=== PATIENT | female | born 2000 | race Caucasian/White ===

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

== ENCOUNTER → 2020-09-15 | Outpatient (CLI) | payer BC ==
--- NOTE | 2020-09-15 11:37 | US ---
EXAMINATION TYPE: US abdomen complete DATE OF EXAM: 09/15/2020 COMPARISON: NONE CLINICAL HISTORY: R10.11 Abd Pain RUQ. EXAM MEASUREMENTS: Liver Length: 15.2 cm Gallbladder Wall: 0.4 cm CBD: 0.4 cm Spleen: 10.3 cm Right Kidney: 11.9 x 3.2 x 4.9 cm Left Kidney: 12.5 x 5.0 x 4.9 cm Pancreas: limited visualization due to midline bowel gas. Liver: wnl Gallbladder: two small gallstones with shadowing, debris floating within, there is echogenic materia l on anterior fundal wall, and possible cholecystic fluid noted, gallbladder wall thickening. Evidence for sonographic Murillo's sign: No CBD: wnl Spleen: wnl Right Kidney: No hydronephrosis or masses seen Left Kidney: No hydronephrosis or masses seen Upper IVC: wnl Abd Aorta: wnl The liver is homogenous. The intrahepatic portion of the IVC and proximal abdominal aorta are within normal limits. There is cholelithiasis. Common bile duct is unremarkable. The visualized portions of the pancreas are homogenous. The spleen is unremarkable. Kidneys are symmetric and free of hydr onephrosis. No renal lesions are seen. IMPRESSION: Cholelithiasis with tumefactive sludge. There are some limitations to the exam. Correlate for possible chronic cholecystitis.
== END | disposition home or self-care (01) ==
LOC: RADUSWWP 07:36
PROVIDERS: ATTEND Internal Medicine
DX: K80.20 Calculus of gallbladder without cholecystitis without obstruction (principal); K82.8 Other specified diseases of gallbladder
CPT/HCPCS: 76700

== ENCOUNTER 2020-09-17 04:03 | Emergency (ER) | payer BC ==
[2020-09-17 04:14] VITALS: BP 111/78; PULSE 74; RESP 18; TEMP 98
[2020-09-17] MEDS ORDERED: MORPHINE SULFATE 4 MG/ML SYRINGE IV STA (04:35)
[2020-09-17] MEDS ORDERED: SODIUM CHLORIDE 0.9% 500 ML 500 ML IV STA (04:35)
[2020-09-17] MEDS ORDERED: KETOROLAC 15 MG/ML 1 ML VIAL IVP STA (04:35)
[2020-09-17] MEDS ORDERED: SODIUM CHLORIDE 0.9% 1,000 ML IV STA (04:35)
--- NOTE | 2020-09-17 04:36 | ED ---
Abdominal Pain HPI - General Chief Complaint: Abdominal Pain Stated Complaint: Abdominal pain Time Seen by Provider: 09/17/20 04:32 Source: patient, RN notes reviewed, old records reviewed, Caregiver Mode of arrival: ambulatory Limitations: no limitations - History of Present Illness Initial Comments: This is a 19-year-old female DF for evaluation of possible gallbladder disease. Patient had outpatient ultrasound as of late in his been having right upper quadrant and epigastric abdominal pain especially after eating. Following with primary care. Patient unsure of exact cause but has been told is likely gallbladder without fever. No surgical history denies chance of MD Complaint: abdominal pain -: days(s) Location: RUQ Radiation: RUQ Migration to: epigastric Severity: moderate Severity scale (1-10): 6 Quality: sharp Consistency: intermittent Improves With: nothing Worsens With: eating Associated Symptoms: nausea Treatments Prior to Arrival: NSAIDs - Related Data Home Medications Medication Instructions Recorded Confirmed Amoxic-Pot Clav 875-125Mg 1 tab PO Q12HR 09/21/20 09/23/20 [Augmentin 875-125] Gianvi- Contol 1 tab PO DAILY 09/21/20 09/23/20 Omeprazole 20 mg PO DAILY 09/21/20 09/23/20 Previous Rx's Medication Instructions Recorded HYDROcodone/APAP 5-325MG [[place] 1 tab PO Q6HR PRN 3 Days #12 tab 09/23/20 5-325] Allergies Allergy/AdvReac Type Severity Reaction Status Date / Time No Known Allergies Allergy Verified 09/21/20 11:32 Review of Systems ROS Statement: Those systems with pertinent positive or pertinent negative responses have been documented in the HPI. ROS Other: All systems not noted in ROS Statement are negative. Past Medical History Past Medical History: No Reported History Additional Past Medical History / Comment(s): Hx Concussion. Enlarged tonsils, adenoids, hx tonsil stones. History of Any Multi-Drug Resistant Organisms: None Reported Past Surgical History: No Surgical Hx Reported Additional Past Surgical History / Comment(s): [place] teeth removed Past Anesthesia/Blood Transfusion Reactions: No Reported Reaction Past Psychological History: No Psychological Hx Reported Smoking Status: Never smoker Past Alcohol Use History: None Reported Past Drug Use History: None Reported - Past Family History Mother Family Medical History: No Reported History General Exam Limitations: no limitations General appearance: alert, in no apparent distress Head exam: Present: atraumatic, normocephalic, normal inspection Eye exam: Present: normal appearance, PERRL, EOMI. Absent: scleral icterus, conjunctival injection, periorbital swelling ENT exam: Present: normal exam, mucous membranes moist Neck exam: Present: normal inspection. Absent: tenderness, meningismus, lymphadenopathy Respiratory exam: Present: normal lung sounds bilaterally. Absent: respiratory distress, wheezes, rales, rhonchi, stridor Cardiovascular Exam: Present: regular rate, normal rhythm, normal heart sounds. Absent: systolic murmur, diastolic murmur, rubs, gallop, clicks GI/Abdominal exam: Present: soft, normal bowel sounds. Absent: distended, tenderness, guarding, rebound, rigid Extremities exam: Present: normal inspection, full ROM, normal capillary refill. Absent: tenderness, pedal edema, joint swelling, calf tenderness Back exam: Present: normal inspection Neurological exam: Present: alert, oriented X3, CN II-XII intact Psychiatric exam: Present: normal affect, normal mood Skin exam: Present: warm, dry, intact, normal color. Absent: rash Course Vital Signs 09/17/20 04:10 Temperature 98 F Pulse Rate 74 Respiratory 18 Rate Blood Pressure 111/78 O2 Sat by Pulse 99 Oximetry - Reevaluation(s) Reevaluation #1: Medical records reviewed Patient has resolution of symptoms here in the ER Patient informed of results results, questions are answered Patient feels good for discharge home Medical Decision Making - Medical Decision Making 19 female to the ER for biliary colic, patient can be discharged home - Lab Data Result diagrams: 09/17/20 04:41 09/17/20 04:41 Lab Results 09/17/20 09/17/20 09/17/20 Range/Units 04:41 04:41 04:41 WBC 8.3 (4.0-11.0) k/uL RBC 4.69 (3.80-5.40) m/uL Hgb 13.2 (11.4-16.0) gm/dL Hct 38.2 (34.0-46.0) % MCV 81.4 (80.0-100.0) fL MCH 28.2 (25.0-35.0) pg MCHC 34.6 (31.0-37.0) g/dL RDW 12.2 (11.5-15.5) % Plt Count 316 (150-450) k/uL MPV 6.5 Neutrophils % 60 % Lymphocytes % 29 % Monocytes % 4 % Eosinophils % 4 % Basophils % 1 % Neutrophils # 5.0 (1.3-7.7) k/uL Lymphocytes # 2.5 (1.0-4.8) k/uL Monocytes # 0.4 (0-1.0) k/uL Eosinophils # 0.3 (0-0.7) k/uL Basophils # 0.1 (0-0.2) k/uL Sodium (137-145) mmol/L Potassium (3.5-5.1) mmol/L Chloride (98-107) mmol/L Carbon Dioxide (22-30) mmol/L Anion Gap mmol/L BUN (7-17) mg/dL Creatinine (0.52-1.04) mg/dL Est GFR (CKD-EPI)AfAm (>60 ml/min/1.73 sqM) Est GFR (CKD-EPI)NonAf (>60 ml/min/1.73 sqM) Glucose (74-99) mg/dL Calcium (8.4-10.2) mg/dL Total Bilirubin (0.2-1.3) mg/dL AST (14-36) U/L ALT (4-34) U/L Alkaline Phosphatase (38-126) U/L Total Protein (6.3-8.2) g/dL Albumin (3.5-5.0) g/dL Amylase (30-110) U/L Lipase (23-300) U/L Urine Color Yellow Urine Appearance Clear (Clear) Urine pH 6.0 (5.0-8.0) Ur Specific [place] 1.030 (1.001-1.035) Urine Protein Trace H (Negative) Urine Glucose (UA) Negative (Negative) Urine Ketones Negative (Negative) Urine Blood Negative (Negative) Urine Nitrite Negative (Negative) Urine Bilirubin Negative (Negative) Urine Urobilinogen <2.0 (<2.0) mg/dL Ur Leukocyte Esterase Negative (Negative) Urine HCG, Qual Not Detected (Not Detectd) 09/17/20 Range/Units 04:41 WBC (4.0-11.0) k/uL RBC (3.80-5.40) m/uL Hgb (11.4-16.0) gm/dL Hct (34.0-46.0) % MCV (80.0-100.0) fL MCH (25.0-35.0) pg MCHC (31.0-37.0) g/dL RDW (11.5-15.5) % Plt Count (150-450) k/uL MPV Neutrophils % % Lymphocytes % % Monocytes % % Eosinophils % % Basophils % % Neutrophils # (1.3-7.7) k/uL Lymphocytes # (1.0-4.8) k/uL Monocytes # (0-1.0) k/uL Eosinophils # (0-0.7) k/uL Basophils # (0-0.2) k/uL Sodium 135 L (137-145) mmol/L Potassium 3.8 (3.5-5.1) mmol/L Chloride 102 (98-107) mmol/L Carbon Dioxide 25 (22-30) mmol/L Anion Gap 8 mmol/L BUN 15 (7-17) mg/dL Creatinine 0.70 (0.52-1.04) mg/dL Est GFR (CKD-EPI)AfAm >90 (>60 ml/min/1.73 sqM) Est GFR (CKD-EPI)NonAf >90 (>60 ml/min/1.73 sqM) Glucose 98 (74-99) mg/dL Calcium 9.4 (8.4-10.2) mg/dL Total Bilirubin 0.5 (0.2-1.3) mg/dL AST 22 (14-36) U/L ALT 18 (4-34) U/L Alkaline Phosphatase 64 (38-126) U/L Total Protein 7.7 (6.3-8.2) g/dL Albumin 4.5 (3.5-5.0) g/dL Amylase 73 (30-110) U/L Lipase 182 (23-300) U/L Urine Color Urine Appearance (Clear) Urine pH (5.0-8.0) Ur Specific [place] (1.001-1.035) Urine Protein (Negative) Urine Glucose (UA) (Negative) Urine Ketones (Negative) Urine Blood (Negative) Urine Nitrite (Negative) Urine Bilirubin (Negative) Urine Urobilinogen (<2.0) mg/dL Ur Leukocyte Esterase (Negative) Urine HCG, Qual (Not Detectd) Disposition Clinical Impression: Abdominal pain, Biliary colic, Biliary sludge Disposition: HOME SELF-CARE Condition: Good Instructions (If sedation given, give patient instructions): Biliary Colic (ED), Low Fat Diet (ED) Is patient prescribed a controlled substance at d/c from ED?: No Referrals: Hermilo Black MD [Medical Doctor] - 1-2 days
[2020-09-17 05:04] LABS: Basophils # (A) 0.1 k/uL (0-0.2); Basophils % (A) 1 %; Eosinophils # (A) 0.3 k/uL (0-0.7); Eosinophils % (A) 4 %; HCT 38.2 % (34.0-46.0); HGB 13.2 gm/dL (11.4-16.0); Lymphocytes # (A) 2.5 k/uL (1.0-4.8); Lymphocytes % (A) 29 %; MCH 28.2 pg (25.0-35.0); MCHC 34.6 g/dL (31.0-37.0); MCV 81.4 fL (80.0-100.0); Mean Platelet Volume 6.5; Monocytes # (A) 0.4 k/uL (0-1.0); Monocytes % (A) 4 %; Neutrophils % (A) 60 %; Platelet Count 316 k/uL (150-450); RBC 4.69 m/uL (3.80-5.40); RDW 12.2 % (11.5-15.5); WBC 8.3 k/uL (4.0-11.0)
[2020-09-17 05:14] LABS: ALT 18 U/L (4-34); AST 22 U/L (14-36); African American GFR (CKD) >90 (>60 ml/min/1.73 sqM); Albumin 4.5 g/dL (3.5-5.0); Alkaline Phosphatase 64 U/L (38-126); Amylase 73 U/L (30-110); Anion Gap 8 mmol/L; Blood Urea Nitrogen 15 mg/dL (7-17); Calcium 9.4 mg/dL (8.4-10.2); Carbon Dioxide 25 mmol/L (22-30); Chloride 102 mmol/L (98-107); Glucose 98 mg/dL (74-99); Lipase 182 U/L (23-300); Non-African American GFR(CKD) >90 (>60 ml/min/1.73 sqM); Potassium 3.8 mmol/L (3.5-5.1); Sodium 135 mmol/L (137-145); Total Bilirubin 0.5 mg/dL (0.2-1.3); Total Protein 7.7 g/dL (6.3-8.2)
[2020-09-17 05:21] LABS: Appearance,Urine Clear (Clear); Bilirubin,Urine Negative (Negative); Blood,Urine Negative (Negative); Color,Urine Yellow; Glucose,Urine (UA) Negative (Negative); Ketones,Urine Negative (Negative); Leukocyte Esterase,Urine Negative (Negative); Nitrite,Urine Negative (Negative); Protein,Urine Trace (Negative); Urobilinogen,Urine <2.0 mg/dL (<2.0)
== END 2020-09-17 06:11 | disposition home or self-care (01) ==
LOC: EC 04:03
DX: K80.50 Calculus of bile duct without cholangitis or cholecystitis without obstruction (principal); K83.8 Other specified diseases of biliary tract; Z79.899 Other long term (current) drug therapy; Z79.3 Long term (current) use of hormonal contraceptives
CPT/HCPCS: 36415; 80053; 82150; 83690; 85025; 81003; 81025; 99284; 96374; 96375; 96361; J2270; J1885

== ENCOUNTER 2020-09-18 22:34 | Emergency (ER) | payer BC ==
[2020-09-18 22:39] VITALS: BP 114/77; PULSE 87; RESP 18; TEMP 97.9
[2020-09-18] MEDS ORDERED: SODIUM CHLORIDE 0.9% 1,000 ML IV STA (22:49)
[2020-09-18] MEDS ORDERED: KETOROLAC 15 MG/ML 1 ML VIAL IVP STA (22:49)
[2020-09-18] MEDS ORDERED: MORPHINE SULFATE 4 MG/ML SYRINGE IV STA (22:49)
[2020-09-18 23:15] LABS: Basophils % (A) 0 %; Eosinophils # (A) 0.4 k/uL (0-0.7); Eosinophils % (A) 3 %; HCT 37.6 % (34.0-46.0); HGB 12.9 gm/dL (11.4-16.0); Lymphocytes # (A) 2.8 k/uL (1.0-4.8); Lymphocytes % (A) 26 %; MCHC 34.2 g/dL (31.0-37.0); MCV 81.7 fL (80.0-100.0); Mean Platelet Volume 6.7; Monocytes # (A) 0.3 k/uL (0-1.0); Monocytes % (A) 3 %; Neutrophils # (A) 6.9 k/uL (1.3-7.7); Neutrophils % (A) 66 %; Platelet Count 303 k/uL (150-450); RDW 12.3 % (11.5-15.5); WBC 10.5 k/uL (4.0-11.0)
[2020-09-18 23:22] LABS: Appearance,Urine Clear (Clear); Bilirubin,Urine Negative (Negative); Blood,Urine Large (Negative); Color,Urine Yellow; Glucose,Urine (UA) Negative (Negative); Ketones,Urine Negative (Negative); Leukocyte Esterase,Urine Small (Negative); Mucus,Urine Many /hpf; Nitrite,Urine Negative (Negative); PH, Urine 5.5 (5.0-8.0); Protein,Urine Trace (Negative); RBC,Urine 71 /hpf (0-5); Specific Gravity,Urine 1.024 (1.001-1.035); Squamous Epithelial Cell,Urine 1 /hpf (0-4); WBC,Urine 5 /hpf (0-5)
[2020-09-18 23:29] LABS: ALT 27 U/L (4-34); AST 52 U/L (14-36); African American GFR (CKD) >90 (>60 ml/min/1.73 sqM); Albumin 4.5 g/dL (3.5-5.0); Alkaline Phosphatase 67 U/L (38-126); Amylase 79 U/L (30-110); Anion Gap 8 mmol/L; Blood Urea Nitrogen 9 mg/dL (7-17); Calcium 9.6 mg/dL (8.4-10.2); Carbon Dioxide 25 mmol/L (22-30); Chloride 106 mmol/L (98-107); Glucose 90 mg/dL (74-99); Lipase 265 U/L (23-300); Non-African American GFR(CKD) >90 (>60 ml/min/1.73 sqM); Potassium 3.7 mmol/L (3.5-5.1); Sodium 139 mmol/L (137-145); Total Bilirubin 0.6 mg/dL (0.2-1.3); Total Protein 7.6 g/dL (6.3-8.2)
--- NOTE | 2020-09-18 23:43 | ED ---
Recheck HPI - General Chief Complaint: Abdominal Pain Stated Complaint: gallbladder flareup Time Seen by Provider: 09/18/20 22:40 Source: patient, RN notes reviewed, old records reviewed Mode of arrival: ambulatory Limitations: no limitations - History of Present Illness Initial Comments: This is a 19-year-old female presenting with her mother. She presents for mother for right upper quadrant and epigastric abdominal pain sudden onset for eating tonight. Patient has had some gallbladder attacks as of late female primary care both here in the ER. Patient with no new symptoms no change in symptoms, occasionally gets pain after eating. No fevers mild nausea she does have vomiting and no diarrhea MD Complaint: other (Patient's recheck for gallbladder pain) -: days(s) Returns Today for: persistent/worsening pain related to initial visit Symptoms Since Prior Visit: worsening pain Associated Symptoms: none Treatments Prior to Arrival: Given Pain Meds on - Related Data Home Medications Medication Instructions Recorded Confirmed Acetaminophen [Tylenol Extra 500 - 1,000 mg PO Q6H PRN 04/25/19 04/30/19 Strength] Ibuprofen [Motrin Ib] 400 mg PO Q6H PRN 04/25/19 04/25/19 Multivitamin [Multivitamins Adult 1 each PO DAILY 04/25/19 04/25/19 Gummies] Allergies Allergy/AdvReac Type Severity Reaction Status Date / Time No Known Allergies Allergy Verified 09/18/20 22:39 Review of Systems ROS Statement: Those systems with pertinent positive or pertinent negative responses have been documented in the HPI. ROS Other: All systems not noted in ROS Statement are negative. Past Medical History Past Medical History: No Reported History Additional Past Medical History / Comment(s): Hx Concussion. Enlarged tonsils, adenoids, hx tonsil stones. History of Any Multi-Drug Resistant Organisms: None Reported Past Surgical History: No Surgical Hx Reported Additional Past Surgical History / Comment(s): [place] teeth removed Past Anesthesia/Blood Transfusion Reactions: No Reported Reaction Past Psychological History: No Psychological Hx Reported Smoking Status: Never smoker Past Alcohol Use History: None Reported Past Drug Use History: None Reported - Past Family History Mother Family Medical History: No Reported History General Exam Limitations: no limitations General appearance: alert, in no apparent distress Head exam: Present: atraumatic, normocephalic, normal inspection Eye exam: Present: normal appearance, PERRL, EOMI. Absent: scleral icterus, conjunctival injection, periorbital swelling ENT exam: Present: normal exam, mucous membranes moist Neck exam: Present: normal inspection. Absent: tenderness, meningismus, lymphadenopathy Respiratory exam: Present: normal lung sounds bilaterally. Absent: respiratory distress, wheezes, rales, rhonchi, stridor Cardiovascular Exam: Present: regular rate, normal rhythm, normal heart sounds. Absent: systolic murmur, diastolic murmur, rubs, gallop, clicks GI/Abdominal exam: Present: soft, normal bowel sounds. Absent: distended, tenderness, guarding, rebound, rigid Extremities exam: Present: normal inspection, full ROM, normal capillary refill. Absent: tenderness, pedal edema, joint swelling, calf tenderness Back exam: Present: normal inspection Neurological exam: Present: alert, oriented X3, CN II-XII intact Psychiatric exam: Present: normal affect, normal mood Skin exam: Present: warm, dry, intact, normal color. Absent: rash Course Vital Signs 09/18/20 22:36 Temperature 97.9 F Pulse Rate 87 Respiratory 18 Rate Blood Pressure 114/77 O2 Sat by Pulse 97 Oximetry - Reevaluation(s) Reevaluation #1: 09/19/20 02:27 Medical records reviewed Reevaluation #2: 09/19/20 02:27 Patient has pain control Reevaluation #3: 09/19/20 02:27 Again spoke with family regarding findings, they are okay for follow-up for pain control Medical Decision Making - Medical Decision Making 89 female DF for evaluation of abdominal pain and nausea episode of vomiting. Patient has known gallbladder disease, will continue to consult as an outpatient - Lab Data Result diagrams: 09/18/20 22:58 09/18/20 22:58 Lab Results 09/18/20 09/18/20 09/18/20 Range/Units 22:58 22:58 22:58 WBC 10.5 (4.0-11.0) k/uL RBC 4.60 (3.80-5.40) m/uL Hgb 12.9 (11.4-16.0) gm/dL Hct 37.6 (34.0-46.0) % MCV 81.7 (80.0-100.0) fL MCH 28.0 (25.0-35.0) pg MCHC 34.2 (31.0-37.0) g/dL RDW 12.3 (11.5-15.5) % Plt Count 303 (150-450) k/uL MPV 6.7 Neutrophils % 66 % Lymphocytes % 26 % Monocytes % 3 % Eosinophils % 3 % Basophils % 0 % Neutrophils # 6.9 (1.3-7.7) k/uL Lymphocytes # 2.8 (1.0-4.8) k/uL Monocytes # 0.3 (0-1.0) k/uL Eosinophils # 0.4 (0-0.7) k/uL Basophils # 0.0 (0-0.2) k/uL Sodium (137-145) mmol/L Potassium (3.5-5.1) mmol/L Chloride (98-107) mmol/L Carbon Dioxide (22-30) mmol/L Anion Gap mmol/L BUN (7-17) mg/dL Creatinine (0.52-1.04) mg/dL Est GFR (CKD-EPI)AfAm (>60 ml/min/1.73 sqM) Est GFR (CKD-EPI)NonAf (>60 ml/min/1.73 sqM) Glucose (74-99) mg/dL Calcium (8.4-10.2) mg/dL Total Bilirubin (0.2-1.3) mg/dL AST (14-36) U/L ALT (4-34) U/L Alkaline Phosphatase (38-126) U/L Total Protein (6.3-8.2) g/dL Albumin (3.5-5.0) g/dL Amylase (30-110) U/L Lipase (23-300) U/L Urine Color Yellow Urine Appearance Clear (Clear) Urine pH 5.5 (5.0-8.0) Ur Specific [place] 1.024 (1.001-1.035) Urine Protein Trace H (Negative) Urine Glucose (UA) Negative (Negative) Urine Ketones Negative (Negative) Urine Blood Large H (Negative) Urine Nitrite Negative (Negative) Urine Bilirubin Negative (Negative) Urine Urobilinogen 2.0 (<2.0) mg/dL Ur Leukocyte Esterase Small H (Negative) Urine RBC 71 H (0-5) /hpf Urine WBC 5 (0-5) /hpf Ur Squamous Epith Cells 1 (0-4) /hpf Urine Mucus Many H (None) /hpf Urine HCG, Qual Not Detected (Not Detectd) 09/18/20 Range/Units 22:58 WBC (4.0-11.0) k/uL RBC (3.80-5.40) m/uL Hgb (11.4-16.0) gm/dL Hct (34.0-46.0) % MCV (80.0-100.0) fL MCH (25.0-35.0) pg MCHC (31.0-37.0) g/dL RDW (11.5-15.5) % Plt Count (150-450) k/uL MPV Neutrophils % % Lymphocytes % % Monocytes % % Eosinophils % % Basophils % % Neutrophils # (1.3-7.7) k/uL Lymphocytes # (1.0-4.8) k/uL Monocytes # (0-1.0) k/uL Eosinophils # (0-0.7) k/uL Basophils # (0-0.2) k/uL Sodium 139 (137-145) mmol/L Potassium 3.7 (3.5-5.1) mmol/L Chloride 106 (98-107) mmol/L Carbon Dioxide 25 (22-30) mmol/L Anion Gap 8 mmol/L BUN 9 (7-17) mg/dL Creatinine 0.76 (0.52-1.04) mg/dL Est GFR (CKD-EPI)AfAm >90 (>60 ml/min/1.73 sqM) Est GFR (CKD-EPI)NonAf >90 (>60 ml/min/1.73 sqM) Glucose 90 (74-99) mg/dL Calcium 9.6 (8.4-10.2) mg/dL Total Bilirubin 0.6 (0.2-1.3) mg/dL AST 52 H (14-36) U/L ALT 27 (4-34) U/L Alkaline Phosphatase 67 (38-126) U/L Total Protein 7.6 (6.3-8.2) g/dL Albumin 4.5 (3.5-5.0) g/dL Amylase 79 (30-110) U/L Lipase 265 (23-300) U/L Urine Color Urine Appearance (Clear) Urine pH (5.0-8.0) Ur Specific [place] (1.001-1.035) Urine Protein (Negative) Urine Glucose (UA) (Negative) Urine Ketones (Negative) Urine Blood (Negative) Urine Nitrite (Negative) Urine Bilirubin (Negative) Urine Urobilinogen (<2.0) mg/dL Ur Leukocyte Esterase (Negative) Urine RBC (0-5) /hpf Urine WBC (0-5) /hpf Ur Squamous Epith Cells (0-4) /hpf Urine Mucus (None) /hpf Urine HCG, Qual (Not Detectd) - Radiology Data Radiology results: report reviewed (Ultrasound positive for gallbladder stones), image reviewed Disposition Clinical Impression: Abdominal pain, Biliary colic Disposition: HOME SELF-CARE Instructions (If sedation given, give patient instructions): Abdominal Pain (ED) Is patient prescribed a controlled substance at d/c from ED?: No Referrals: Lorene Escobar MD [Primary Care Provider] - 1-2 days
--- NOTE | 2020-09-19 00:01 | US ---
EXAMINATION TYPE: US gallbladder DATE OF EXAM: 09/18/2020 COMPARISON: US 3 days ago CLINICAL HISTORY: pain. RUQ pain and N/V, known cholelithiasis EXAM MEASUREMENTS: Liver Length: 18.0 cm Gallbladder Wall: 0.2 cm CBD: 0.3 cm Right Kidney: 11.3 x 3.8 x 4.7 cm Pancreas: visualized portions wnl, limited by overlying midline bowel gas Liver: measures in upper limits of normal Gallbladder: gallstones with debris, wall measures wnl Evidence for sonographic Murillo's sign: no CBD: wnl Right Kidney: wnl IMPRESSION: Numerous gallstones. Gallbladder not dilated. No dilated ducts.
[2020-09-19] MEDS ORDERED: ACET/COD 300 MG/30 MG STARTER PACK 6 TAB BTL PO STA (01:31)
[2020-09-19] MEDS ORDERED: ONDANSETRON 4 MG ODT STARTER PACK 2 TAB BTL PO STA (01:31)
== END 2020-09-19 01:45 | disposition home or self-care (01) ==
LOC: EC 22:34
DX: K80.50 Calculus of bile duct without cholangitis or cholecystitis without obstruction (principal)
CPT/HCPCS: 36415; 80053; 82150; 83690; 85025; 81001; 81025; 76705; 99285; 96374; 96375; 96361; J2270; J1885; S0119

== ENCOUNTER → 2020-09-20 | Outpatient (CLI) | payer BC | END | disposition home or self-care (01) | LOC: LABWHC1 14:45 | PROVIDERS: ATTEND Surgery | DX: Z20.828 Contact with and (suspected) exposure to other viral communicable diseases (principal) | CPT/HCPCS: U0003; C9803 ==

== ENCOUNTER 2020-09-23 08:06 | Day surgery (SDC) | payer BC ==
[2020-09-21 11:39] VITALS: BMI 20.3
[~2020-09-23 08:06] MED LIST changes: -DEXAMETHASONE SOD PHOSPHATE 10 MG/ML 1 ML VIAL IV ONE; -FAMOTIDINE 20 MG/2 ML VIAL IV ONE; +HEPARIN SODIUM,PORCINE 5,000 UNIT/ML 1 ML VIAL SQ PRN; +HYDROmorphone 0.5 MG/0.5 ML SYRINGE IVP PRN; +LIDOCAINE 1% (10MG/ML) FOR IV START INTRADERMA PRN; -LIDOCAINE 1% 20 ML VIAL (10MG/ML) FOR IV START INTRADERMA PRN; +MIDAZOLAM 2 MG/2 ML VIAL IV PRN; -fentaNYL (PF) 50 MCG/ML 2 ML AMP IV PRN
[2020-09-23] MEDS ORDERED: FAMOTIDINE 20 MG/2 ML VIAL IVP ONE (08:35)
[2020-09-23] MEDS ORDERED: SCOPOLAMINE 1.5MG/72HR PATCH TRANSDERM ONE (08:36)
[2020-09-23] MEDS ORDERED: LIDOCAINE 1% INJ 10MG/ML (20 ML MDV) ONE (08:56)
[2020-09-23] MEDS ORDERED: NEOSTIGMINE 1 MG/ML 10 ML VIAL ONE (08:56)
[2020-09-23] MEDS ORDERED: HYDROmorphone (PF) 1 MG/ML ONE (08:56)
[2020-09-23] MEDS ORDERED: fentaNYL (PF) 50 MCG/ML 2 ML AMP ONE (08:56)
[2020-09-23] MEDS ORDERED: PROPOFOL 10 MG/ML 20 ML VIAL IV ONE (08:56)
[2020-09-23] MEDS ORDERED: GLYCOPYRROLATE 0.2 MG/ML 2 ML VIAL ONE (08:56)
[2020-09-23] MEDS ORDERED: INDOCYANINE GREEN 25 MG VIAL IV ONE (08:56)
[2020-09-23] MEDS ORDERED: ROCURONIUM 10 MG/ML (10 ML VIAL) IV ONE (08:56)
[2020-09-23] MEDS ORDERED: MIDAZOLAM 2 MG/2 ML VIAL ONE (08:56)
[2020-09-23] MEDS ORDERED: LIDOCAINE 1%-EPI 1:100,000 20 ML VIAL SQ ONE (09:15)
--- NOTE | 2020-09-23 09:56 | P.OP ---
Date of Procedure: 09/23/20 Preoperative Diagnosis: Symptomatic cholelithiasis Postoperative Diagnosis: Symptomatic cholelithiasis Procedure(s) Performed: Robotic cholecystectomy Anesthesia: VIVIANA Surgeon: Osiel Vaughn Pathology: other (Gallbladder) Condition: stable Disposition: same day Indications for Procedure: 19-year-old female presented surgical clinic after multiple ER visits secondary to epigastric pain. On workup, patient was found to have cholelithiasis and symptoms were assumed to be associated with cholelithiasis. Patient has been on a trial of PPI that has been unsuccessful. Patient and the patient's mother were explained Risks, benefits and alternatives to the procedure and did provide consent prior to attending the operating suite. Operative Findings: Distended gallbladder, cholelithiasis, gallbladder sludge Description of Procedure: The patient was brought to the operating suite and placed in supine position on the operating table. Sedation was provided by anesthesia and the patient underwent endotracheal intubation. The patient was then prepped and draped in regular sterile fashion. An infraumbilical incision was made and dissection was carried to the fascia. The fascia was incised and an 8 mm trocar was placed. Pneumoperitoneum was achieved. 3 additional 8 mm ports were placed. One was placed in the left lower quadrant and 2 were placed in the right lower quadrant. The patient was then positioned appropriately and the robot was docked. Prior to induction of anesthesia, the patient did have ICG injected. The gallbladder was then grasped and elevated superiorly and the infundibulum was grasped and retracted laterally. ICG view was then used and the anatomy was clearly delineated with the cystic duct and cystic artery clearly visualized. At this point, the cystic duct and cystic artery were skeletonized. 2 clips were placed proximally and the cystic duct one was placed distally and the cystic duct was ligated. 2 clips were placed proximally on the cystic artery one was placed distally and the cystic artery was ligated. At this point cautery was used to dissect the gallbladder from the gallbladder fossa. Hemostasis was maintained during this process. At this point, the robot was undocked and the gallbladder was placed in an Endo Catch bag laparoscopically. The gallbladder was then removed from the abdomen. Hemostasis was continued to be maintained. Irrigation was used in the right upper quadrant and suctioned. The infraumbilical incision site was then closed under direct visualization using an 0 Vicryl suture and Gurpreet-Tomas device. Pneumoperitoneum was then released all ports removed from the abdomen. All skin incisions were closed with 4-0 Vicryl subcuticular suture. The patient was awakened in the operating suite and taken to postanesthesia care unit in stable condition.
[2020-09-23 10:06] VITALS: TEMP 97.4
[2020-09-23] MEDS ORDERED: KETOROLAC 15 MG/ML 1 ML VIAL IVP ONE ×2 (10:11→11:46)
[2020-09-23 10:20] VITALS: RESP 16
[2020-09-23] MEDS ORDERED: KETOROLAC 15 MG/ML 1 ML VIAL ONE (11:46)
[2020-09-23 12:11] VITALS: BP 120/71; PULSE 73
[2020-09-23] MEDS ORDERED: ONDANSETRON 4 MG/2 ML VIAL ONE (12:22)
[2020-09-23] MEDS ORDERED: ONDANSETRON 4 MG/2 ML VIAL IVP ONE (12:22)
== END 2020-09-23 12:38 | disposition home or self-care (01) ==
LOC: OR 08:06
PROVIDERS: ATTEND Surgery
DX: K80.10 Calculus of gallbladder with chronic cholecystitis without obstruction (principal); K21.9 Gastro-esophageal reflux disease without esophagitis; Z90.89 Acquired absence of other organs; Z79.3 Long term (current) use of hormonal contraceptives; Z79.899 Other long term (current) drug therapy; Z79.891 Long term (current) use of opiate analgesic; Z91.89 Other specified personal risk factors, not elsewhere classified
CPT/HCPCS: 47562; S2900; 81025; 88304

== ENCOUNTER → 2021-07-12 | Outpatient (CLI) | payer BC | END | disposition home or self-care (01) | LOC: LABWHC1 15:41 | PROVIDERS: ATTEND Internal Medicine | DX: Z02.0 Encounter for examination for admission to educational institution (principal) | CPT/HCPCS: 36415; 86480 ==

== ENCOUNTER → 2022-03-08 | Outpatient (CLI) | payer BC ==
--- NOTE | 2022-03-08 14:35 | US ---
EXAMINATION TYPE: US transvaginal DATE OF EXAM: 03/08/2022 COMPARISON: NONE CLINICAL HISTORY: N92.1 menorrhagia with irrigular cycle. TECHNIQUE: Transvaginal (TV). Date of LMP: 03-06-22 EXAM MEASUREMENTS: Uterus: 7.1 x 3.3 x 4.6 cm Endometrial Stripe: 0.3 cm Right Ovary: 2.2 x 0.9 x 1.1 cm Left Ovary: 1.8 x 1.4 x 1.2 cm 1. Uterus: Anteverted wnl 2. Endometrium: wnl 3. Right Ovary: wnl 4. Left Ovary: wnl 5. Bilateral Adnexa: wnl 6. Posterior cul-de-sac: wnl IMPRESSION: No abnormality noted by ultrasound.
== END | disposition home or self-care (01) ==
LOC: RADUSWWP 13:56
PROVIDERS: ATTEND Internal Medicine
DX: N92.1 Excessive and frequent menstruation with irregular cycle (principal)
CPT/HCPCS: 76830

== ENCOUNTER 2023-01-03 06:45 | Day surgery (SDC) | payer BC ==
[2023-01-03] MEDS ORDERED: ONDANSETRON 4 MG/2 ML VIAL IVP ONE (07:10)
[2023-01-03 07:12] VITALS: TEMP 98.4
[2023-01-03] MEDS ORDERED: LACTATED RINGERS 1,000 ML IV SCH (07:15)
[2023-01-03] MEDS ORDERED: ONDANSETRON 4 MG/2 ML VIAL ONE (07:20)
[2023-01-03] MEDS ORDERED: PROPOFOL 10 MG/ML 20 ML VIAL IV ONE (07:38)
[2023-01-03] MEDS ORDERED: LIDOCAINE 2% INJ 20 MG/ML (2 ML VIAL) ONE (07:38)
[2023-01-03] MEDS ORDERED: MIDAZOLAM 2 MG/2 ML VIAL ONE (07:38)
[2023-01-03] MEDS ORDERED: fentaNYL (PF) 50 MCG/ML 2 ML AMP ONE (07:38)
--- NOTE | 2023-01-03 08:01 | P.PCN ---
Date of Procedure: 01/03/23 Procedure(s) Performed: Brief history: Patient is a pleasant 72-year-old white female scheduled for an elective upper endoscopy as well as colonoscopy as a part of evaluation of GERD and chronic diarrhea for the last 1-2 years duration. Presently on Prilosec 20 mg daily with good symptomatic control of reflux symptoms. Procedure performed: Esophagogastroduodenoscopy with biopsy Colonoscopy with biopsy Preoperative diagnosis: GERD Chronic diarrhea of 2 years duration Anesthesia: MAC Procedure: After informed consent was obtained from the patient was brought into the endoscopy unit and IV sedation was administered by anesthesia under continuous monitoring. Initially upper endoscopy was done. The Olympus GF 160 video endoscope was inserted inserted into the mouth and esophagus intubated without any difficulty and was gradually advanced into the stomach and duodenum and carefully examined. The bulb and second part of the duodenum appeared normal. Biopsies were done from the duodenum to rule out celiac disease. The scope was then withdrawn into the stomach adequately insufflated with air and upon careful examination the antrum had mild mottling of the mucosa and biopsies were done from this area. Mucosa of the body, cardia and fundus appeared normal. The scope was then withdrawn into the esophagus. The GE junction was located at 40 cm to the incisors. It appeared regular with no erythema erosions or ulcerations. Rest of the esophagus appeared normal. Patient tolerated the procedure well. At this time the patient continued to remain sedation. Initial digital rectal examination was normal. Olympus CF 160 video colonoscope was then inserted into the rectum and gradually advanced to the cecum without any difficulty. Careful examination was performed as the scope was gradually being withdrawn. The prep was excellent. Terminal ileum was intubated and 20 cm visualized and appeared normal. The cecum, ascending colon, transverse colon, descending colon, sigmoid colon and rectum appeared normal. Random biopsies were done from ascending and descending colon to rule out microscopic/collagenous colitis. Retroflexion was performed in the rectum and no lesions were noted. Patient tolerated the procedure well. Impression: 1. Upper endoscopy revealed minimal antral gastritis but no evidence of esophagitis or peptic ulcer disease 2. 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 She was advised to follow with the biopsy results. Continue with omeprazole 20 mg daily and follow antireflux measures.. Recommend using over-t he-counter Imodium as needed for the chronic diarrhea. Follow up in office if she continues to have persistent symptoms for further management
[2023-01-03 08:23] VITALS: BP 113/75; PULSE 71; RESP 18
== END 2023-01-03 08:44 ==
LOC: ORWHC2ENDO 06:45
PROVIDERS: ATTEND Internal Medicine Gastroenterology
DX: K29.50 Unspecified chronic gastritis without bleeding (principal); K52.9 Noninfective gastroenteritis and colitis, unspecified; K21.9 Gastro-esophageal reflux disease without esophagitis; K91.0 Vomiting following gastrointestinal surgery; Z79.899 Other long term (current) drug therapy
CPT/HCPCS: 81025; 88305; 45380; 43239; J2250; J2405; J3010; J2704; J2001

== ENCOUNTER → 2023-04-16 | Outpatient (CLI) | payer BC ==
[2023-04-17 03:38] LABS: Gliadin AB IgA, Deaminated Negative (Negative); Gliadin AB IgA, Unit <0.5 U/mL; Gliadin AB IgG, Deaminated Negative (Negative); Gliadin AB IgG, Unit <0.4 U/mL
== END | disposition home or self-care (01) ==
LOC: LABWHC1 16:12
PROVIDERS: ATTEND Nurse Practitioner Family
DX: K58.0 Irritable bowel syndrome with diarrhea (principal)
CPT/HCPCS: 36415; 83516; 85652; 86140